=== PATIENT | male | born 1955 | race Caucasian/White ===

== ENCOUNTER 2020-09-25 17:04 | Outpatient (CLI) | payer OTHER, MEDICARE | END 2020-09-25 17:05 | disposition home or self-care (01) | LOC: COV 17:04 | PROVIDERS: ATTEND Family Medicine | DX: Z20.822 Contact with and (suspected) exposure to COVID-19 (principal) ==

== ENCOUNTER 2020-12-17 03:46 | Emergency (ER) | payer MEDICARE ==
[2020-12-17] MEDS ORDERED: SODIUM CHLORIDE 0.9% 1,000 ML IV STA (04:06)
[2020-12-17 04:14] LABS: BASOPHILS % (AUTO) 0.7 %; EOSINOPHILS # (AUTO) 0.1 10^3/uL (0.0-0.7); EOSINOPHILS % (AUTO) 1.2 %; HCT - HEMATOCRIT 42.8 % (42.0-52.0); HGB - HEMOGLOBIN 14.7 g/dL (14.0-18.0); LYMPHOCYTES # (AUTO) 0.9 10^3/uL (1.5-3.5); LYMPHOCYTES % (AUTO) 16.5 %; MEAN CORPUSCULAR HEMOGLOBIN 32.8 pg (27.0-31.0); MEAN CORPUSCULAR HGB CONC 34.3 g/dL (32.0-36.0); MEAN CORPUSCULAR VOLUME 95.5 fL (80.0-94.0); MEAN PLATELET VOLUME 9.5 fL (7.4-11.4); MONOCYTES # (AUTO) 0.5 10^3/uL (0.0-1.0); MONOCYTES % (AUTO) 8.7 %; NEUTROPHILS # (AUTO) 4.1 10^3/uL (1.5-6.6); NEUTROPHILS % (AUTO) 72.7 %; PLT - PLATELET COUNT 211 10^3/uL (130-450); RED BLOOD COUNT 4.48 10^6/uL (4.70-6.10); RED CELL DISTRIBUTION WIDTH 11.7 % (12.0-15.0); WHITE BLOOD COUNT 5.6 x10^3/uL (4.8-10.8)
[2020-12-17 04:35] LABS: ALBUMIN 4.3 g/dL (3.2-5.5); ALBUMIN/GLOBULIN RATIO 1.7 (1.0-2.2); BILIRUBIN,TOTAL 2.6 mg/dL (0.2-1.0); CALCIUM 9.1 mg/dL (8.5-10.3); POTASSIUM 3.4 mmol/L (3.5-5.0); TOTAL PROTEIN 6.8 g/dL (6.7-8.2)
[2020-12-17 05:11] LABS: GLUCOSE, URINE (UA) NEGATIVE (NEGATIVE); KETONES,URINE (UA) >=80 mg/dL (NEGATIVE); LEUKOCYTE ESTERASE, URINE NEGATIVE (NEGATIVE); NITRITE,URINE POSITIVE (NEGATIVE); OCCULT BLOOD,URINE NEGATIVE (NEGATIVE); PROTEIN,URINE TRACE mg/dL (NEGATIVE); UROBILINOGEN,URINE 1 (NORMAL) E.U./dL (NORMAL)
[2020-12-17 05:20] LABS: BILIRUBIN,URINE NEGATIVE (NEGATIVE); CLARITY,URINE CLEAR (CLEAR); ICTOTEST,URINE NEGATIVE
[2020-12-17 05:23] LABS: BACTERIA,URINE Few /HPF (None Seen); MUCUS,URINE Moderate Strands; RBC,URINE 0-5 /HPF (0-5); SQUAMOUS EPITHELIAL CELL,UR RARE Squamous (<= Few); WBC,URINE 0-3 /HPF (0-3)
--- NOTE | 2020-12-17 05:53 | ED Physician Documentation ---
History of Present Illness - Stated complaint Stated Complaint: SYNCOPE/CHILLS - Chief complaint Chief Complaint: Abd Pain - History obtained from History obtained from: Patient - Additonal information Additional information: Patient comes to the emergency department with chief complaint of syncopal episode after having a bowel movement this morning. Patient states he has been on a liquid diet for 3 days and that normally, he feels good on day 3. However, this morning he woke up and states he is "just did not feel good". He states he had low abdominal cramping and felt as though he needed to have a bowel movement, so he got up to go the bathroom. He states he had a large diarrhea stool and then immediately started to feel lightheaded. He states he woke up on the floor and after regaining his composure, he attempted to get up, but felt very lightheaded again, so he squatted down and leaned against the wall with his back. Patient states he had another bowel movement on the floor well in that position and had a near syncopal episode but did not fully lose consciousness. The patient states that it took about 10 minutes before he felt well enough to get up. He states he talked to his about it and told her he wanted to come here to get checked out. Patient states that he did not have any shortness of breath or chest pain. He has not had any fever but has had chills this morning. No vomiting though he had a touch of nausea. No blood in his stools. Patient states that although he has been on the liquid diet, he has been drinking only 6 to 7 cups of liquid total daily. He is also been taking Smooth Move, a laxative tea which generally softens his stools. He has been taking this every day, even though he is on the liquid diet. He states he has been trying to cleanse his bowels thereby. Patient states the only other time he is fainted was after "smoking a tube" 3 weeks ago. Patient is not known to have any cardiac issues. He states that his heart rate is normally in the low to mid 40s but that after the syncopal episode, it was 35. He does not have any hypertension. 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 Patient states that right now, he is feeling fairly well. No other complaints at this time. Review of Systems Ten Systems: 10 systems reviewed and negative Constitutional: reports: Reviewed and negative Eyes: reports: Reviewed and negative Ears: reports: Reviewed and negative Nose: reports: Reviewed and negative Throat: reports: Reviewed and negative Cardiac: reports: Other (Syncope) Respiratory: reports: Reviewed and negative GI: reports: Nausea, Diarrhea : reports: Reviewed and negative Skin: reports: Reviewed and negative Musculoskeletal: reports: Reviewed and negative Neurologic: reports: Reviewed and negative Psychiatric: reports: Reviewed and negative Endocrine: reports: Reviewed and negative Immunocompromised: reports: Reviewed and negative PD PAST MEDICAL HISTORY - Past Medical History Past Medical History: Yes - Past Surgical History Past Surgical History: Yes General: Cholecystectomy - Present Medications Home Medications: Ambulatory Orders Medication Instructions Recorded Confirmed No Known Home Medications 12/17/20 12/17/20 - Allergies Allergies/Adverse Reactions: Allergies Allergy/AdvReac Type Severity Reaction Status Date / Time tramadol AdvReac Nausea Verified 12/17/20 04:06 - Social History Does the pt smoke?: No Smoking Status: Never smoker Does the pt drink ETOH?: No Does the pt have substance abuse?: No - Immunizations Immunizations are current?: Yes - POLST Patient has POLST: No PD ED PE NORMAL - Vitals Vital signs reviewed: Yes - General General: Alert and oriented X 3, No acute distress, Well developed/nourished, Other (Well-appearing male in no apparent distress) - HEENT HEENT: Atraumatic, PERRL, EOMI, Moist mucous membranes - Neck Neck: Supple, no meningeal sign - Cardiac Cardiac: RRR, No murmur - Respiratory Respiratory: No respiratory distress, Clear bilaterally - Abdomen Abdomen: Soft, Non tender, Non distended - Back Back: No CVA TTP - Derm Derm: Normal color, Warm and dry, No rash - Extremities Extremities: No deformity, No edema, No calf tenderness / cord - Neuro Neuro: Alert and oriented X 3, 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, No motor deficit, No sensory deficit, Normal speech, Other (Grossly intact.) - Psych Psych: Normal mood, Normal affect Results - Vitals Vitals: Vital Signs - 24 hr 12/17/20 12/17/20 12/17/20 04:03 04:08 04:56 Temperature 37.2 C Heart Rate 45 L 45 L 49 L Respiratory 14 14 12 Rate Blood Pressure 128/69 127/80 124/76 O2 Saturation 100 100 99 12/17/20 12/17/20 12/17/20 05:25 05:58 06:05 Temperature 36.3 C L Heart Rate 49 L 49 L 45 L Respiratory 13 12 13 Rate Blood Pressure 109/65 107/66 120/69 O2 Saturation 99 100 100 Oxygen O2 Source Room air - EKG (time done) 0354 Rate: Rate (enter#) (42) Rhythm: Sinus bradycardia Manning: Normal, Anterior hemiblock Intervals: Normal VA QRS: Normal Ischemia: Normal ST segments, Non specific changes Compare to prior EKG: Old EKG unavailable Computer interpretation: Agree with computer - Labs Labs: Laboratory Tests 12/17/20 12/17/20 12/17/20 04:05 04:05 04:31 WBC 5.6 RBC 4.48 L Hgb 14.7 Hct 42.8 MCV 95.5 H MCH 32.8 H MCHC 34.3 RDW 11.7 L Plt Count 211 MPV 9.5 Neut # (Auto) 4.1 Lymph # (Auto) 0.9 L [place] # (Auto) 0.5 Eos # (Auto) 0.1 Baso # (Auto) 0.0 Absolute Nucleated RBC 0.00 Nucleated RBC % 0.0 Sodium 136 Potassium 3.4 L Chloride 99 L Carbon Dioxide 25 Anion Gap 12.0 BUN 15 Creatinine 1.0 Estimated GFR (MDRD) 75 L Glucose 97 Calcium 9.1 Total Bilirubin 2.6 H AST 20 ALT 17 Alkaline Phosphatase 36 L Troponin I High Sens 8.2 Total Protein 6.8 Albumin 4.3 Globulin 2.5 Albumin/Globulin Ratio 1.7 Lipase 26 Urine Color Urine Clarity Urine pH Ur Specific [place] Urine Protein Urine Glucose (UA) Urine Ketones Urine Occult Blood Urine Nitrite Urine Bilirubin Urine Urobilinogen Ur Leukocyte Esterase Urine RBC Urine WBC Ur Squamous Epith Cells Urine Bacteria Urine Mucus Ur Microscopic Review Urine Culture Comments 12/17/20 04:57 WBC RBC Hgb Hct MCV MCH MCHC RDW Plt Count MPV Neut # (Auto) Lymph # (Auto) [place] # (Auto) Eos # (Auto) Baso # (Auto) Absolute Nucleated RBC Nucleated RBC % Sodium Potassium Chloride Carbon Dioxide Anion Gap BUN Creatinine Estimated GFR (MDRD) Glucose Calcium Total Bilirubin AST ALT Alkaline Phosphatase Troponin I High Sens Total Protein Albumin Globulin Albumin/Globulin Ratio Lipase Urine Color DARK YELLOW Urine Clarity CLEAR Urine pH 6.0 Ur Specific [place] 1.025 Urine Protein TRACE Urine Glucose (UA) NEGATIVE Urine Ketones >=80 H Urine Occult Blood NEGATIVE Urine Nitrite POSITIVE H Urine Bilirubin NEGATIVE Urine Urobilinogen 1 (NORMAL) Ur Leukocyte Esterase NEGATIVE Urine RBC 0-5 Urine WBC 0-3 Ur Squamous Epith Cells RARE Squamous Urine Bacteria Few Urine Mucus Moderate Strands Ur Microscopic Review INDICATED Urine Culture Comments INDICATED PD MEDICAL DECISION MAKING - ED course Complexity details: reviewed results, re-evaluated patient, considered differential, d/w patient ED course: The patient was given a liter 0.9 normal saline and worked up with labs and EKG. Labs were unremarkable, including troponin. EKG showed sinus bradycardia, but otherwise unremarkable. Urinalysis showed dark yellow urine that was Somewhat concentrated, with urine ketones. I discussed with the patient, who had been feeling well in the emergency department, that I suspect a combination of some mild dehydration, orthostatic effects, and the large bowel movement triggering a parasympathetic reflex loop, causing reflex syncope. I have discussed with the patient that although he is on a liquid diet, 6 to 7 cups is not enough per day and he should still in for 8-10. I have also advised the patient that if he fee ls lightheaded like this again, he should probably try eating a small amount of food and see if this helps. Additionally, I have advised him to stop using the laxative tea, especially when he is on a solid food fast, As constipation would not be expected on a liquid diet and the smooth move will most likely only trigger diarrhea, which could trigger another episode of reflux syncope. We have discussed the need for follow-up if he develops repeated episodes of syncope. We have also discussed the usual indications for return. I do not find any evidence of infection, cardiac emergency, or blood loss today. Departure - Departure Disposition: 01 Home, Self Care Clinical Impression: Vasovagal syncope Condition: Stable Instructions: ED Syncope Vasovagal Comments: Your labs and EKG look good today. Most likely, your fainting episode today was caused by an exaggerated vagal, or parasympathetic nervous system response, set off by positional change from laying down to upright following close succession by a significant bowel output. There is no evidence today of a cardiac issue that is caused this. Your EKG rhythm looks good other than being mildly slow, and the lab used to check for "heart attack" is normal. Your urine was dark and while it was not excessively concentrated, the degree to his was concentrated in the color indicate that you likely could use more fluid to drink. This will probably help with any tendency toward fainting in the near future. If you begin to have repeated fainting episodes day after day, then it is very important that you talk to your doctor about wearing an event monitor to keep tabs on your cardiac rhythm and make sure it is normal. There is no evidence of hemorrhage, severe infection or any other serious or emergent cause of your fainting episode today. Discharge Date/Time: 12/17/20 06:12
[2020-12-17 06:11] VITALS: BP 120/69
== END 2020-12-17 06:12 | disposition home or self-care (01) ==
LOC: ED 03:46
DX: R55 Syncope and collapse (principal); R00.1 Bradycardia, unspecified; R10.819 Abdominal tenderness, unspecified site
CPT/HCPCS: 36415; 80053; 81001; 81003; 83690; 84484; 85025; 87086; 93005; 96360; 99284

== ENCOUNTER 2023-03-16 19:27 | Emergency (ER) | payer MEDICARE ==
--- NOTE | 2023-03-16 22:06 | XRAY Report ---
PROCEDURE: Ribs w/PA Chest 3+V RT INDICATIONS: pain TECHNIQUE: 2 views of the ribs were acquired, along with a single view chest. COMPARISON: None. FINDINGS: Surgical changes and devices: None. Bones and chest wall: No fractures or dislocations. No suspicious bony lesions. Overlying soft tis sues appear unremarkable. Lungs and pleura: No pleural effusions or pneumothorax. Lungs appear clear. Mediastinum: Mediastinal contours appear normal. Heart size is normal. IMPRESSION: No displaced rib fracture or pneumothorax. Reviewed by: Sage Gonzalez MD on 03/16/2023 10:05 PM [facility] Approved by: Sage Gonzalez MD on 03/16/2023 10:05 PM [facility] Station ID: [id number]
--- NOTE | 2023-03-16 22:55 | ED Physician Documentation ---
History of Present Illness - Stated complaint Stated Complaint: R SIDE PX - Chief complaint Chief Complaint: General - History obtained from History obtained from: Patient - Additonal information Additional information: HPI from patient. Patient complains of right flank and right upper quadrant pain for "a couple of weeks" (per patient). Denies injury. Denies history of similar symptoms. There was no inciting event. The pain waxes and wanes without apparent exacerbating or ameliorating factors. He has had nausea but no vomiting. He was seen in a clinic for this about a week ago but no diagnosis nor specific treatment was recommended; patient says that it was thought perhaps he had "pulled a muscle" (per patient). However, the the pain, episodically, has continued and thus he returned to the clinic earlier today and was advised to come to the emergency department for evaluation.Patient denies dysuria, hematuria, rash, shortness of breath, chest pain. Review of Systems Constitutional: denies: Fever, Chills, Sweats Cardiac: reports: Reviewed and negative Respiratory: reports: Reviewed and negative GI: reports: Abdominal Pain, Nausea. denies: Abdominal Swelling, Vomiting, Constipation, Diarrhea, Bloody / black stool : denies: Dysuria, Frequency, Hematuria Skin: denies: Rash PD PAST MEDICAL HISTORY - Past Medical History Past Medical History: No - Past Surgical History Past Surgical History: Yes General: Cholecystectomy - Present Medications Home Medications: Ambulatory Orders Medication Instructions Recorded Confirmed Lidocaine Patch 5% [Lidoderm Patch] 1 patch TOP DAILY PRN #10 patch 03/17/23 Ondansetron Odt [Zofran Odt] 4 mg TL Q6H PRN #10 tablet 03/17/23 oxyCODONE [Roxicodone] 5 mg PO Q4-6H PRN #10 tablet 03/17/23 - Allergies Allergies/Adverse Reactions: Allergies Allergy/AdvReac Type Severity Reaction Status Date / Time tramadol AdvReac Nausea Verified 03/16/23 23:39 - Social History Does the pt smoke?: No Smoking Status: Never smoker Does the pt drink ETOH?: No Does the pt have substance abuse?: No - Immunizations Immunizations are current?: Yes - POLST Patient has POLST: No PD ED PE NORMAL - Vitals Vital signs reviewed: Yes - General General: Alert and oriented X 3, No acute distress, Well developed/nourished - Cardiac Cardiac: RRR, No murmur - Respiratory Respiratory: No respiratory distress, Clear bilaterally - Abdomen Abdomen: Normal bowel sounds, Soft, Non tender, Non distended - Back Back: No CVA TTP, No spinal TTP - Derm Derm: Normal color, Warm and dry, No rash Results - Vitals Vitals: Vital Signs - 24 hr 03/16/23 03/16/23 03/17/23 19:38 23:00 02:40 Temperature 36.8 C Heart Rate 50 L 50 L 49 L Respiratory 16 12 13 Rate Blood Pressure 140/88 H 141/88 H 137/93 H O2 Saturation 98 97 95 Oxygen O2 Source Room air - Labs Labs: Laboratory Tests 03/16/23 03/16/23 03/16/23 23:26 23:26 23:47 WBC 3.9 L RBC 4.46 L Hgb 14.4 Hct 41.9 L MCV 93.9 MCH 32.3 H MCHC 34.4 RDW 11.9 L Plt Count 233 MPV 9.3 Neut # (Auto) 2.2 Lymph # (Auto) 1.2 L [place] # (Auto) 0.4 Eos # (Auto) 0.1 Baso # (Auto) 0.0 Absolute Nucleated RBC 0.00 Nucleated RBC % 0.0 Sodium 140 Potassium 4.0 Chloride 106 Carbon Dioxide 27 Anion Gap 7.0 BUN 18 Creatinine 0.9 Estimated GFR (MDRD) 84 L Glucose 101 Calcium 9.5 Total Bilirubin 1.3 H AST 16 ALT 17 Alkaline Phosphatase 39 L Total Protein 6.4 Albumin 4.3 Globulin 2.1 Albumin/Globulin Ratio 2.0 Lipase 35 Urine Color YELLOW Urine Clarity CLEAR Urine pH 7.0 Ur Specific [place] 1.015 Urine Protein NEGATIVE Urine Glucose (UA) NEGATIVE Urine Ketones NEGATIVE Urine Occult Blood NEGATIVE Urine Nitrite NEGATIVE Urine Bilirubin NEGATIVE Urine Urobilinogen 0.2 (NORMAL) Ur Leukocyte Esterase NEGATIVE Ur Microscopic Review NOT INDICATED Urine Culture Comments NOT INDICATED - Rads (name of study) CT A/P with IV contrast Relevant Findings:: Prelim report reviewed, See rad report PD Medical Decision Making - ED course Complexity details: reviewed results, re-evaluated patient, considered differential, d/w patient ED course: No concerning or diagnostic findings on tonight's tests. Mild leukopenia noted on CBC (3.9 WBC). Normal ER abdominal panel with insignificant exceptions of bilirubin 1.3 and alkaline phosphatase 39. Urinalysis is normal. CT of the abdomen and pelvis is without acute abnormality. Incidental findings include colonic diverticulosis, large hiatal hernia (patient says he is aware of the hiatal hernia), and a duodenal diverticulum. The cause of the symptoms is not apparent at this time. I discussed these results with the patient as well as the lack of diagnosis/etiology of symptoms. I instructed him to seek follow-up with his PCP; further testing might be indicated, particularly if the symptoms persist. We discussed pain medication; he is ambivalent about prescription-strength (narcotic/opiate) pain medication. He would like analgesics to help with the pain so that he can sleep, but is concerned about potential side effects (specifically nausea and vomiting). He has been taking Tylenol and ibuprofen with inadequate relief. After further discussion, we agreed on the following plan: A Lidoderm patch is placed on the right flank over the area of pain, and I provided him with take-home packs of ondansetron and Percocet. I have electronically submitted prescriptions for all 3 of these medications to his pharmacy of choice. I instructed him to take the Percocet for pain that is not controlled with [id number] medications, but, if he does take Percocet, to take a dose of the ondansetron 30 to 45 minutes prior to taking the Percocet so as to minimize nausea/vomiting. I am prescribing a short course of short-acting opioid pain medication for this patient. I have reviewed the patients ARCHITECT MANAGER and no concerning findings were noted. I have discussed that the opioids are for short term therapy only, and will not be refilled from the ED. Departure - Departure Disposition: 01 Home, Self Care Clinical Impression: Flank pain Condition: Good Instructions: ED Flank Pain Uncertain Cause, ED Abdominal Pain Unkn Cause Male Prescriptions: Lidocaine Patch 5% [Lidoderm Patch] 1 patch TOP DAILY PRN #10 patch PRN Reason: pain oxyCODONE [Roxicodone] 5 mg PO Q4-6H PRN #10 tablet PRN Reason: Pain >8 Ondansetron Odt [Zofran Odt] 4 mg TL Q6H PRN #10 tablet PRN Reason: Nausea / Vomiting Comments: There were no concerning nor diagnostic findings on tonight's tests, including the blood test, urinalysis, and the CT scan of your abdomen and pelvis. The cause of your symptoms is not apparent at this time. As we discussed, there were incidental findings on the CT scan of diverticulosis, and a large hiatal hernia. Follow-up with your primary care provider, next available appointment, for reevaluation. I have electronically submitted prescriptions for lidocaine patches, oxycodone (narcotic/opiate pain medication), and ondansetron (antinausea medication) to the [facility] pharmacy in [place]. I am prescribing a short course of narcotic pain medication for you. These are potentially dangerous and addictive medications that should be used carefully. These medications may constipate you. Take an [id number] stool softener (docusate) twice daily with plenty of water while taking these medications. If you go 24 hours without a bowel movement, take [id number] miralax, per package instructions. Do not drink or drive while taking these medications. If you received narcotic or sedating medications while in the emergency d epartment, do not drive for 24 hours. Store this medication in a safe, secure place and out of reach of children. It is a violation of federal law to give or sell this medication to another person or to use in a manner other than prescribed. The ED will not refill narcotic prescriptions, including prescriptions lost or stolen. To dispose of unwanted medications: 1. [facility] at [address] in [place] has a medication drop box. They accept prescription medications (in pill form) Thursday through Thursday 9:00 a.m. to 5:00 p.m. 2. [facility] [employer] accepts prescription medications (in pill form only) for disposal year round. Call for more information. 3. Contact the [facility] for the next [facility] sponsored prescription drug collection event. , [phone], or [phone]; Discharge Date/Time: 03/17/23 02:30
[2023-03-16] MEDS ORDERED: iohexoL-300 100 ML VIAL ONE (23:32)
[2023-03-16 23:40] LABS: EOSINOPHILS # (AUTO) 0.1 10^3/uL (0.0-0.7); EOSINOPHILS % (AUTO) 2.6 %; HCT - HEMATOCRIT 41.9 % (42.0-52.0); HGB - HEMOGLOBIN 14.4 g/dL (14.0-18.0); LYMPHOCYTES # (AUTO) 1.2 10^3/uL (1.5-3.5); LYMPHOCYTES % (AUTO) 29.6 %; MEAN CORPUSCULAR HEMOGLOBIN 32.3 pg (27.0-31.0); MEAN CORPUSCULAR HGB CONC 34.4 g/dL (32.0-36.0); MEAN CORPUSCULAR VOLUME 93.9 fL (80.0-94.0); MEAN PLATELET VOLUME 9.3 fL (7.4-11.4); MONOCYTES # (AUTO) 0.4 10^3/uL (0.0-1.0); MONOCYTES % (AUTO) 9.5 %; NEUTROPHILS # (AUTO) 2.2 10^3/uL (1.5-6.6); PLT - PLATELET COUNT 233 10^3/uL (130-450); RED BLOOD COUNT 4.46 10^6/uL (4.70-6.10); RED CELL DISTRIBUTION WIDTH 11.9 % (12.0-15.0); WHITE BLOOD COUNT 3.9 x10^3/uL (4.8-10.8)
[2023-03-16 23:53] LABS: BILIRUBIN,URINE NEGATIVE (NEGATIVE); GLUCOSE, URINE (UA) NEGATIVE (NEGATIVE); KETONES,URINE (UA) NEGATIVE (NEGATIVE); LEUKOCYTE ESTERASE, URINE NEGATIVE (NEGATIVE); NITRITE,URINE NEGATIVE (NEGATIVE); OCCULT BLOOD,URINE NEGATIVE (NEGATIVE); PROTEIN,URINE NEGATIVE (NEGATIVE); UROBILINOGEN,URINE 0.2 (NORMAL) E.U./dL (NORMAL)
[2023-03-16 23:57] LABS: CLARITY,URINE CLEAR (CLEAR)
[2023-03-17 00:09] LABS: BILIRUBIN,TOTAL 1.3 mg/dL (0.2-1.0); CALCIUM 9.5 mg/dL (8.5-10.3); CREATININE 0.9 mg/dL (0.6-1.3)
[2023-03-17 00:10] LABS: ALBUMIN 4.3 g/dL (3.2-5.5); TOTAL PROTEIN 6.4 g/dL (6.4-8.9)
[2023-03-17] MEDS ORDERED: iohexoL-300 100 ML VIAL IVP ONE (00:34)
--- NOTE | 2023-03-17 00:46 | CT Report ---
PROCEDURE: Abdomen/Pelvis W INDICATIONS: RUQ/right flank pain CONTRAST: 100 ML OMNI 300 TECHNIQUE: After the administration of intravenous contrast, a CT scan of the abdomen and pelvis was performed. Images were recorded and evaluated at appropriate window settings. Reformats: coronal and sagittal. F or radiation dose reduction, the following was used: automated exposure control, adjustment of mA and /or kV according to patient size. COMPARISON: CT 12/14/2022. FINDINGS: Image quality: Excellent. Lung bases and heart: Cardiomegaly. Large hiatal hernia. Liver: No solid mass. Subcentimeter hypoattenuating lesion in segment 2, too small to characterize by CT but stable from prior. Gallbladder and biliary tree: Surgically absent. No biliary dilation, accounting for post-cholecystec rick state. Spleen: No splenomegaly. Pancreas: No pancreatic ductal dilation. Adrenals: No adrenal nodule. Kidneys and ureters: No hydronephrosis. No renal cystic lesion which requires follow up. No solid mas s. Bowel and peritoneum: No bowel distension. No pathologic free fluid. Diverticulosis without evidence of diverticulitis. Normal appendix. Duodenal diverticulum of the second segment. Lymph nodes: No central or retroperitoneal adenopathy. Vessels: No infrarenal aortic aneurysm. PELVIS Reproductive organs: Unremarkable. Bladder: No abnormal wall thickening, accounting for underdistention. Pelvic lymph nodes: No pelvic adenopathy by size criteria. Bones: No aggressive osseous abnormality. Other: Fat within the left inguinal canal. IMPRESSION: No acute abnormality. Colonic diverticulosis without evidence of diverticulitis. Normal appendix. No nephrolithiasis. Large hiatal hernia. Reviewed by: Sage Gonzalez MD on 03/17/2023 12:45 AM PST Approved by: Sage Gonzalez MD on 03/17/2023 12:45 AM PST Station ID: [id number]
[2023-03-17] MEDS ORDERED: LIDOCAINE PATCH 4% TOP STA (01:45)
[2023-03-17] MEDS ORDERED: oxyCODONE/ACET 5/325 Prepack 4 PO STA (01:53)
[2023-03-17] MEDS ORDERED: ONDANSETRON ODT 4 MG Prepack 2 TL PRN (01:53)
[2023-03-17 03:01] VITALS: BP 137/93; O2SAT 95
== END 2023-03-17 02:30 | disposition home or self-care (01) ==
LOC: ED 19:27
DX: R10.11 Right upper quadrant pain (principal)
CPT/HCPCS: 36415; 71101; 74177; 80053; 81003; 83690; 85025; 99284; A9270; Q9967; 81001; 87086